=== PATIENT | female | born 1975 | race Caucasian/White ===

== ENCOUNTER 2018-06-12 22:22 | Emergency (ER) | payer MEDICAID, OTHER ==
[2018-06-12] MEDS: HYDROCODONE/APAP (5/325) TAB PO (23:40)
== END 2018-06-13 01:36 | disposition home or self-care (01) ==
LOC: FTE 06-13 01:36
DX: S52.609A Unspecified fracture of lower end of unspecified ulna, initial encounter for closed fracture (principal); X58.XXXA Exposure to other specified factors, initial encounter; Y92.9 Unspecified place or not applicable
CPT/HCPCS: 29105; 73080-LT; 99283-25